=== PATIENT | female | born 1995 | race Caucasian/White ===

== ENCOUNTER 2017-12-02 14:20 | Emergency (ER) | payer BC ==
--- NOTE | 2017-12-02 17:03 | UC ---
Complaint Female HPI - HPI Summary HPI Summary: Pt c/o of generalized pelvic discomfort, abdominal bloating and vaginal discharge that is bloody tinged. Pt states that she had pain during intercourse last evening, felt feverish and chilled after. Pt has copper IUD that was placed in april 2017. Denies risk for STD or . Denies urinary symptoms of frequency, urgency or dysuria. - History Of Current Complaint Chief Complaint: UCAbdominalPain Stated Complaint: STOMACH ACHE Time Seen by Provider: 12/02/17 16:05 Hx Obtained From: Patient Hx Last Menstrual Period: 11/17/17 ?: No Onset/Duration: Gradual Onset, Lasting Days, Still Present Timing: Constant Severity Initially: Mild Severity Currently: Mild Pain Intensity: 4 Character: Dull, Colicy Aggravating Factor(s): [place] Associated Signs And Symptoms: Positive: Fever, Vaginal Bleeding/Discharge - Risk Factors Ectopic Risk Factor: IUD Use Ovarian Torsion Risk Factor: Reproductive Age - Allergies/Home Medications Allergies/Adverse Reactions: Allergies Allergy/AdvReac Type Severity Reaction Status Date / Time No Known Allergies Allergy Verified 12/02/17 14:59 Home Medications: Home Medications Copper (Iud) [Paragard IUD] 1 unit IU ONCE 12/02/17 [History Confirmed 12/02/17] PMH/Surg Hx/FS Hx/Imm Hx Previously Healthy: Yes - Surgical History Surgical History: None - Family History Known Family History: Positive: Cardiac Disease - Social History Occupation: Student - [employer] Alcohol Use: None Substance Use Type: None Smoking Status (MU): Never Smoked Tobacco Have You Smoked in the Last Year: No - Immunization History Vaccination Up to Date: Yes Review of Systems Constitutional: Fever, Chills Skin: Negative Eyes: Negative ENT: Negative Respiratory: Negative Cardiovascular: Negative Gastrointestinal: Abdominal Pain Genitourinary: Vaginal/Penile Discharge, Vaginal/Penile Pain Motor: Negative Neurovascular: Negative Musculoskeletal: Negative Neurological: Negative Psychological: Negative Is Patient Immunocompromised?: No All Other Systems Reviewed And Are Negative: Yes Physical Exam Triage Information Reviewed: Yes Appearance: Well-Appearing Vital Signs: Initial Vital Signs Temp 98.4 F 12/02/17 15:00 Pulse 70 12/02/17 15:00 Resp 16 12/02/17 15:00 BP 137/72 12/02/17 15:00 Pulse Ox 100 12/02/17 15:00 Vital Signs Reviewed: Yes Eye Exam: Normal ENT Exam: Normal Dental Exam: Normal Neck exam: Normal Respiratory Exam: Normal Cardiovascular Exam: Normal Abdominal Exam: Normal Pelvic Exam: Positive: Speculum Exam Normal, No Masses, Blood, Discharge Diagnostics - Laboratory Diagnostic Studies Completed/Ordered: uc preg: negative Complaint Female Dx - Differential Dx/Diagnosis Differential Diagnosis/HQI/PQRI: Ectopic, Ovarian Cyst, Pelvic Inflammatory Disease, Sexually Transmitted Disease, Urinary Tract Infection Provider Diagnoses: pelvic pain Discharge - Sign-Out/Discharge Documenting (check all that apply): Patient Departure All imaging exams completed and their final reports reviewed: No Studies - Discharge Plan Condition: Stable Disposition: HOME Patient Education Materials: Pelvic Pain in Women (ED) Referrals: [facility] [Outside] - As Soon As Possible Harvinder HINOJOSA,Tammy Reilly [Primary Care Provider] - If Needed - Billing Disposition and Condition Condition: STABLE Disposition: Home
[2017-12-02 17:04] VITALS: BP 125/75
== END 2017-12-02 17:23 | disposition home or self-care (01) ==
LOC: UCCORT 14:20
DX: R10.2 Pelvic and perineal pain (principal)
CPT/HCPCS: 81003; 84702; 87480; 87491; 87510; 87591; 87661; 99212; G0463